=== PATIENT | male | born 1945 | race Caucasian/White ===

== ENCOUNTER → 2018-07-15 | Outpatient (REF) | payer MEDICARE, OTHER ==
[~2018-07-15] VITALS: Ht 177.8 cm; Wt 93.0 kg
[~2018-07-15] MED LIST: ASPIRIN325 MG PO; CALCIUM CHOLECALCIFE PO; CARVEDILOL6.25 MG PO; DOXAZOSIN1 MG PO; LIPITOR20 M1 PO; LOSARTAN POT25 MG PO; MULTI VIT PO; PERCOCET 10/31 COMBO PO; PLAVIX75 MG PO; VITAMIN B-1100 M1 PO
[2018-07-15 12:30] VITALS: BP 149/87
== END | disposition home or self-care (01) ==
LOC: ORM 11:00 → PO 11:26
PROVIDERS: ATTEND Urology
DX: Z01.818 Encounter for other preprocedural examination (principal); N47.1 Phimosis; I10 Essential (primary) hypertension; E78.5 Hyperlipidemia, unspecified; Z86.79 Personal history of other diseases of the circulatory system; Z98.890 Other specified postprocedural states; Z72.89 Other problems related to lifestyle

== ENCOUNTER 2018-07-19 10:16 | Day surgery (SDC) | payer MEDICARE, OTHER ==
[~2018-07-19 10:16] MED LIST changes: -PERCOCET 10/31 COMBO PO
[2018-07-19] MEDS ORDERED: PERCOCET 10/31 COMBO PO (13:23)
[2018-07-19 13:52] VITALS: BP 128/77
== END 2018-07-19 14:09 | disposition home or self-care (01) ==
LOC: ORM 10:16
PROVIDERS: ATTEND Urology
PROC: 0VTTXZZ Resection of Prepuce, External Approach (ICD-10-PCS; principal; 2018-07-19)
DX: N47.1 Phimosis (principal); I10 Essential (primary) hypertension; I25.10 Atherosclerotic heart disease of native coronary artery without angina pectoris; N39.3 Stress incontinence (female) (male); N52.34 Erectile dysfunction following simple prostatectomy; Z87.891 Personal history of nicotine dependence; Z85.46 Personal history of malignant neoplasm of prostate; Z79.82 Long term (current) use of aspirin
CPT/HCPCS: J0131

== ENCOUNTER 2019-01-30 22:22 | Emergency (ER) | payer MEDICARE, OTHER ==
[~2019-01-30] VITALS: Ht 177.8 cm; Wt 90.0 kg
[~2019-01-30 22:22] MED LIST changes: +PERCOCET 10/31 COMBO PO
[2019-01-30 23:40] VITALS: BP 142/90
[2019-01-30] MEDS ORDERED: GENTAMICIN0.3 % OS (23:40)
== END 2019-01-30 23:50 | disposition home or self-care (01) ==
LOC: ED 22:22
DX: S05.02XA Injury of conjunctiva and corneal abrasion without foreign body, left eye, initial encounter (principal); I10 Essential (primary) hypertension; X58.XXXA Exposure to other specified factors, initial encounter